=== PATIENT | male | born 2005 | race Caucasian/White ===

== ENCOUNTER 2024-11-12 20:06 | Emergency (ER) | payer OTHER, SELFPAY ==
[2024-11-12 20:08] VITALS: BP 128/84
--- NOTE | 2024-11-12 21:23 | ED.GENMED ---
History of Present Illness
General
Chief Complaint: Eye Problems
Time Seen by Provider: 11/12/24 20:37
History of Present Illness
History of Present Illness:
19-year-old male without significant past medical history presenting to the emergency department for bilateral eye irritation. 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
discomfort of both his eyes. He feels like 'sandpaper '. He denies changes in vision, however notes pain with his eyes are open. Does note some light sensitivity. Denies any additional injuries. Denies issues with welding and eye irritation in
the past. Denies additional acute medical complaints
Phy Exam
Physical Exam
Physical Exam:
General: Well-appearing, no clinical signs of dehydration, nontoxic and in no acute distress
HEENT: protecting airway, pupils equal and reactive, extraoccular muscles intact
Neck: appears supple
CV: Normal heart rate
Resp: No accessory muscle use, no increased work of breathing
Abd: no distension
Extremities: No deformities, no swelling
Neuro: alert, no focal neurologic deficit
: deferred
Rectal: deferred
Psych: Normal affect
Skin: Intact
Course
Vital Signs
Initial and Last Documented VS:
Initial Vital Signs
Temp Pulse Resp BP Pulse Ox
97.6 F 80 15 128/84 98
11/12/24 20:08 11/12/24 20:08 11/12/24 20:08 11/12/24 20:08 11/12/24 20:08
Last Documented Vital Signs
Temp Pulse Resp BP Pulse Ox
97.6 F 80 15 128/84 98
11/12/24 20:08 11/12/24 20:08 11/12/24 20:08 11/12/24 20:08 11/12/24 20:08
MDM/Problems Addressed
MDM/Problems Addressed:
19-year-old male without significant past medical history presenting for bilateral eye irritation after welding. Vital signs normal.
On exam, patient is resting comfortably, no acute distress or discomfort. External eye exam is within normal limits with the exception of some conjunctival and scleral irritation. Patient denying any visual changes, without concern for compromise
to the vision. Tetracaine drops used to bilateral arms with subsequent fluorescein staining. No evidence of any corneal abrasions or foreign bodies. Ultimately suspect UV keratitis from UV light exposure. Start patient on antibiotic, provided
erythromycin ointment and instructed on how to use. Otherwise feel stable for discharge with close outpatient follow-up with the eye doctor. Strict return precautions communicated with patient verbalized understanding
*Critical Care Note
Total Time (30-74mins, 75-104mins- exclusive of procedures): Not Applicable
ED Attending Note
-
Portions of this chart may have been created with voice recognition software.� Occasional wrong word or��sound alike� substitutions may have occurred due to the inherent limitations of voice recognition software.
Discharge Plan
Departure
Patient Disposition: Home (Routine Discharge)
Date of Disposition: 11/12/24
Time of Disposition: 21:32
Patient with high blood pressure during this ER visit?: No
Condition: Good
Discharge Problem:
UV keratitis, Irritation of both eyes
Instructions: Photokeratitis (arc eye)
Prescriptions:
New
erythromycin 5 mg/gram (0.5 %) ointment
0.5 inch BOTH EYES TID Qty: 3.5 0RF
Referrals:
Lilli Spain MD [Active] -
NONE,* [Family Provider] -
Activity Restrictions/Additional Instructions:
You were seen in the emergency department for eye irritation
You are suspected to have keratitis, which is inflammation to the eye from UV light exposure. You were given an antibiotic for your eye. Please use 4 times a day to both eyes. Please follow-up closely with the international marketing coordinator.
Please follow-up closely with your primary care physician.
Return to the emergency department for any worsening of your symptoms, or any development of chest pain, difficulty breathing, abdominal pain with persistent vomiting and inability to tolerate food or liquid by mouth (concern for dehydration),
weakness, headache or confusion, fever greater than 100.4, or any additional symptoms that are concerning to you.
Thank you for choosing [facility].
Interventions
Interventions:
*Risk Screen - Suicide Last Done: 11/12/24 20:08
*General Assessment Last Done: 11/12/24 20:08
*Neglect/Abuse Screening Last Done: 11/12/24 20:08
*ED- Fall Risk Assessment Last Done: 11/12/24 20:58
Discharge Date and Time
Print Language: CYMRO
[2024-11-12] MEDS: ERYTHROMYCIN 0.5% OPHTHALMIC OINTMENT 1 APPLIC OPHTH (21:53)
== END 2024-11-12 21:54 | disposition home or self-care (01) ==
LOC: EMR 20:06
PROVIDERS: EMERGENCY PHYSICIAN Student in an Organized Health Care Education/Training Program
DX: H16.133 Photokeratitis, bilateral (principal); H57.13 Ocular pain, bilateral
CPT/HCPCS: 99283

== ENCOUNTER 2025-06-03 19:52 | Emergency (ER) | payer OTHER, SELFPAY ==
[2025-06-03 20:09] VITALS: BP 131/81
[2025-06-03 22:20] LABS: Hematocrit 40.2 % (39.0-52.0); Hemoglobin 13.9 g/dL (13.0-18.0); Mean Corp Hgb Conc. 34.6 g/dL (33.0-37.0); Mean Corpuscular Volume 85.0 fL (80.0-94.0); Platelet Count 172 10^3/uL (130-400); Red Cell Dist. Width 13.0 % (11.5-14.5)
[2025-06-03 22:32] LABS: ALT (SGPT) 224 U/L (0-50); AST (SGOT) 102 U/L (17-59); Albumin 4.3 g/dl (3.5-5.0); Alkaline Phosphatase 69 U/L (38-126); Blood Urea Nitrogen 13 mg/dl (9-20); Calcium 9.4 mg/dl (8.4-10.2); Carbon Dioxide 26 mmol/L (22-30); Chloride 104 mmol/L (98-107); Glucose 78 mg/dl (70-99); Potassium 3.7 mmol/L (3.5-5.1); Sodium 134 mmol/L (135-145); Total Protein 7.4 g/dl (6.3-8.2); eGFR > 60.00
[2025-06-03 22:33] VITALS: BMI 27.5
--- NOTE | 2025-06-03 22:33 | ED.GENMED ---
History of Present Illness
General
Chief Complaint: Throat Problem
Source: patient
Exam Limitations: none
Time Seen by Provider: 06/03/25 21:29
Nursing documentation reviewed up to this point in time: agreed with
History of Present Illness
History of Present Illness:
Patient to the emergency department with complaint of sore throat. States his symptoms started approximately 2 weeks ago. Last night his throat pain became more severe. He denies fever or chills. He denies any difficulty eating or drinking. No
difficulty breathing. Came to the emergency department accompanied by his mother. He denies any sick contacts.
Past History
Past History
ED Past Medical History: None
Review of Systems
Review of Systems
Allergies reviewed?: Yes
All Other Systems: ROS reviewed and negative except as documented in HPI and ROS
Constitutional: Reports fatigue
EENT: Reports sore throat
Respiratory: Reports no symptoms
Cardiac: Reports no symptoms
ABD/GI: Reports no symptoms
: Reports no symptoms
Musculoskeletal: Reports no symptoms
Skin: Reports no symptoms
Neurological: Reports no symptoms
Psychiatric: Reports no symptoms
Phy Exam
General Physical Exam
General Presentation: mild distress
General age: appears stated age
General Skin: warm and dry
General Habitus: normal
General Mental: alert
ENT Exam
ENT Exam: neck supple, swallowing well and other (Pharyngeal swelling noted, bilateral tonsillar enlargement. Uvula is midline. No evidence of peritonsillar abscess or cellulitis)
Cardiovascular Exam
Cardiovascular Exam: regular rate/rhythm
Pulmonary Exam
Pulmonary Exam: lungs clear and no respiratory distress
Gastrointestinal Exam
Gastrointestinal Exam: non tender, soft, no organomegaly and non distended
Musculoskeletal Exam
Musculoskeletal Exam: full ROM and neuro vasc intact
Skin Exam
Skin Exam: normal color, warm/dry and no rash
Psychiatric Exam
Psychiatric Exam: normal mood/affect
Course
Orders/Labs/Results
Orders:
Orders
06/03/25 21:34
Rapid Strep Group A Urgent
KUMAR Source: Throat/Pharynx
Specimen Description:
Date Specimen was Collected: 06/03/25
Time Specimen was Collected: 21:32
06/03/25 22:03
COVID-19 Antigen Urgent
Source: Nasal Swab
Complete Blood Count/With Diff Urgent
Comprehensive Metabolic Panel Urgent
Monotest Urgent
Influenza A+B Rapid Molecular Urgent
KUMAR Source: Nasal Swab
Specimen Description:
06/03/25 22:32
Dexamethasone Pf [Decadron] 10 mg PO NOW STA
Abnormal Lab Results
06/03/25
22:03
WBC 11.2 H 10^3/uL
(4.8-10.8)
Sodium 134 L mmol/L
(135-145)
AST 102 H U/L
(17-59)
ALT 224 H U/L
(0-50)
Monoscreen Positive A
(Negative)
06/03/25 22:03
06/03/25 22:03
Vital Signs
Initial and Last Documented VS:
Initial Vital Signs
Temp Pulse Resp BP Pulse Ox
100.6 F H 87 16 131/81 97
06/03/25 20:09 06/03/25 20:09 06/03/25 20:09 06/03/25 20:09 06/03/25 20:09
Last Documented Vital Signs
Temp Pulse Resp BP Pulse Ox
100.6 F H 87 16 131/81 97
06/03/25 20:09 06/03/25 20:09 06/03/25 20:09 06/03/25 20:09 06/03/25 22:35
*Pulse Oximetry
SaO2: 97
Oxygen Mode of Delivery: Room air
Patient hypoxic: no
*Critical Care Note
Total Time (30-74mins, 75-104mins- exclusive of procedures): Not Applicable
Update Note
Update Note:
Patient to the emergency department for evaluation of sore throat. Symptoms started approximately 2 weeks ago but became worse last p.m. He denies fever or chills. No difficulty breathing or swallowing. On arrival to the ED his temp is 100.6.
Pharyngeal erythema noted along with bilateral tonsillar swelling. No exudate noted. Uvula is midline. There is no evidence of peritonsillar abscess or cellulitis. Labs reviewed. Strep negative. Positive mono. WBC is 11.2, he has mild
elevation in the AST ALT. Abdomen is soft nontender no organomegaly noted. Discussed findings with patient and his mother. He was given 10 mg of Decadron tonight in ED to help with his inflammation and pain. He will continue ibuprofen every 6-8
hours as needed for pain and fever at home. He was instructed to follow-up with his family doctor next week will need a recheck of his liver enzymes at that time. He will be discharged home tonight. Patient was given instructions on signs and
symptoms to return to the emergency department and he is agreeable to this plan.
ED Attending Note
-
Portions of this chart may have been created with voice recognition software.� Occasional wrong word or��sound alike� substitutions may have occurred due to the inherent limitations of voice recognition software.
Discharge Plan
Departure
Patient Disposition: Home (Routine Discharge)
Date of Disposition: 06/03/25
Time of Disposition: 22:37
Patient with high blood pressure during this ER visit?: No
Condition: Good
Covid-19: Not Applicable
Discharge Problem:
Infectious mononucleosis
Instructions: Sore Throat, Adult (DC), Mononucleosis (DC)
Prescriptions:
No Action
erythromycin 5 mg/gram (0.5 %) ointment
0.5 inch BOTH EYES TID Qty: 3.5 0RF
Referrals:
NONE,* [Family Provider, Internal Medicine]
Activity Restrictions/Additional Instructions:
Follow-up with your family doctor next week. As we discussed you have a mild elevation of your liver enzymes. You will need to have your liver enzymes rechecked in 1 to 2 weeks. Return to the emergency department immediately for abdominal pain,
vomiting fever not responding to ibuprofen, any difficulty breathing or swallowing. Avoid Tylenol and alcohol. Avoid any type of contact sports.
Interventions
Interventions:
*Risk Screen - Suicide Last Done: 06/03/25 20:09
*General Assessment Last Done: 06/03/25 21:39
*Neglect/Abuse Screening Last Done: 06/03/25 20:09
*ED- Fall Risk Assessment Last Done: 06/03/25 21:39
*ED COVID-19 Vaccine History Last Done: 06/03/25 21:40
*ED Influenza Vaccine History Last Done: 06/03/25 21:40
ED-EENT Assessment Last Done: 06/03/25 21:38
ED- Pulmonary Assessment Last Done: 06/03/25 21:39
Discharge Date and Time
Print Language: [place]
[2025-06-03] MEDS: DECADRON 10 MG PO (22:37)
[2025-06-03 22:40] LABS: COVID-19 Antigen Negative (Negative)
[2025-06-03 22:43] VITALS: BP 122/74
[2025-06-03 22:48] LABS: Nucleated Red Blood Cells % 0 % (-)
== END 2025-06-03 22:44 | disposition home or self-care (01) ==
LOC: EMR 19:52
PROVIDERS: Nurse Practitioner; EMERGENCY PHYSICIAN Emergency Medicine
DX: B27.90 Infectious mononucleosis, unspecified without complication (principal)
CPT/HCPCS: 99283; 80053; 85025; 86308; 87070; 87502; 87811; 87880